=== PATIENT | female | born 1990 | race Two or more races ===

== ENCOUNTER 2024-09-14 23:24 | Emergency (ER) | payer OTHER, SELFPAY ==
[2024-09-14 23:24] VITALS: BMI 43.0
[2024-09-15 00:05] VITALS: BP 154/99; PULSE 110; RESP 18; TEMP 37.1; O2SAT 96
--- NOTE | 2024-09-15 00:26 | XR_ITS ---
Examination: Abdomen sonogram, Limited Date and time of exam: September 15, 2024 0325 hrs. Indications: Epigastric pain beginning one week ago Technique: Real-time crow scale transabdominal sonographic images of the upper abdomen obtained. Findings: Gallbladder is contracted around gallstones Gallbladder wall 0.4 cm Common bile duct 0.1 cm Pancreas obscured by bowel gas Liver 14.1 cm irregular contour no focal liver lesions Normal hepatopedal portal venous flow Patent IVC Impression: Cholelithiasis Thickened gallbladder wall 0.4 cm, consider HIDA scan or MRCP follow-up
--- NOTE | 2024-09-15 00:27 | PD.EDRME ---
Rapid Medical Screening Exam RME Arrival date/time: 09/14/24 23:24 34-year-old female past medical history of gallstones presents emergency department complaining of epigastric pain that radiates to her upper back. Chief Complaint: Abdominal Pain Time Seen by Provider: 09/15/24 00:09 Vital signs: Vital Signs Temperature 98.8 F 09/15/24 00:05 Pulse Rate 110 H 09/15/24 00:05 Respiratory Rate 18 09/15/24 00:05 Blood Pressure 154/99 H 09/15/24 00:05 Pulse Oximetry (%) 96 09/15/24 00:05 Oxygen Delivery Method Room Air 09/15/24 00:05 Vital signs reviewed by provider: Yes
[2024-09-15] MEDS: ACETAMINOPHEN 500 MG TABLET 1000 MG PO (00:36)
[2024-09-15 00:42] VITALS: BP 156/92; PULSE 100; RESP 17; O2SAT 100
[2024-09-15 01:01] LABS: Basophils % (Auto) 0 % (0-2.5); Eosinophils # (Auto) 0.3 Thou/mm3 (0.0-0.5); Eosinophils % (Auto) 2 % (0-10); Hemoglobin 13.7 g/dL (12.0-16.0); Immature Granulocytes % (Auto) 1 % (0-0); Immature Granulocytes Auto 0.05 Thou/mm3 (0.00-0.00); Lymphocytes % (Auto) 28 % (10-50); Mean Corpuscular HGB Conc 31.9 g/dl (31.0-37.0); Mean Corpuscular Volume 79 fL (80-100); Monocytes # (Auto) 0.5 Thou/mm3 (0.0-0.8); Monocytes % (Auto) 5 % (0-12); Neutrophils # (Auto) 6.7 Thou/mm3 (1.8-7.7); Neutrophils % (Auto) 64 % (37-80); Nucleated Red Blood Cell % 0 /100 WBC (0); Platelet Count 309 Thou/mm3 (140-440); Red Blood Count 5.47 Miln/mm3 (4.00-5.20); White Blood Count 10.5 Thou/mm3 (3.6-11.0)
--- NOTE | 2024-09-15 01:19 | EDNOTE_ITS ---
ED Abdominal Pain RME/HPI General Chief Complaint: Abdominal Pain Stated complaint: RUQ PAIN RADIATES TO BACK NAUSEA Time seen by provider: 09/15/24 00:09 Arrival date/time: 09/14/24 23:24 RME / HPI RME / HPI narrative: DR. COLEMAN MAIN ED EVALUATION: 34 year old female with past medical history significant for hypertension and diabetes presents to the Emergency Department with complaint of epigastric pain that radiates to the upper back area. Pain is described as aching and rated mild to moderate in severity. Related Data Home Medications ?Medication ?Instructions ?Recorded ?Confirmed amlodipine 5 mg tablet 5 mg PO QDAY 10/28/23 10/28/23 dapagliflozin propanediol 10 mg 10 mg PO QDAY 10/28/23 10/28/23 tablet (Farxiga) semaglutide 2 mg/dose (8 mg/3 mL) 2 mg subcut QWEEK 10/28/23 10/28/23 subcutaneous pen injector (Ozempic) Allergies Allergy/AdvReac Type Severity Reaction Status Date / Time No Known Allergies Allergy Verified 10/28/23 16:08 Review of Systems Review of Systems Systems Reviewed: All systems reviewed, normal except as documented Narrative Review of Systems: GEN: No fever, no chills, no weight loss EYES: No discharge, no visual changes, no pain HEENT: No ear pain, no congestion, no sore throat PULM: No shortness of breath, no cough, no congestion CV: No chest pain, no dyspnea on exertion, no palpitations GI: No nausea, no vomiting, no diarrhea, + epigastric pain, no constipation : No frequency, no urgency and no dysuria MUSC/SKEL: No joint pain, + back pain SKIN: No rash PSYCH: No hallucinations, no depression HEME/LYMPH: No easy bleeding or bruising tendencies NEURO: No weakness, no headache Past Medical History Past Medical History CARDIAC: Positive Cardiac Disorders and Hypertension ENDOCRINE: Positive Diabetes Mellitus Type 2 Social History SMOKING STATUS: Never smoker SUBSTANCE USE: does not use ALCOHOL: Never ED Exam Narrative Physical exam: GENERAL APPEARANCE: alert and oriented x 4, well-developed, well-nourished, no acute distress VITALS: All vitals were reviewed and the pulse ox is 100% on room air, which is normal according to my interpretation. HEENT: Normocephalic, atraumatic; pupils equal, round, reactive to light; EOMI; mucous membranes pink, moist; oropharynx clear NECK: Supple LUNGS: CTABL; no wheezes, no rales, no rhonchi HEART: Regular rate, regular rhythm; normal S1, S2; no murmurs ABDOMEN: non distended; normal BS; soft, no tenderness, no guarding, no rebound; no masses, no organomegaly, no hernia BACK: no CVA tenderness EXTREMITIES: atraumatic; no edema NEUROLOGIC: awake; alert and oriented x4; cranial nerves II-XII grossly intact; no focal sensory or motor deficits PSYCHIATRIC: appropriate mood and affect SKIN: warm, dry, normal color; no rashes Course Quality Measures none Orders Category Date Time Status US gall bladder Stat Exams 09/15/24 00:26 Completed US renal BI Stat Exams 09/15/24 02:09 Completed CBC Stat Lab 09/15/24 00:48 Completed CMP [Comprehensive Metabolic Panel] Stat Lab 09/15/24 00:48 Completed HCG,Qualitative Serum Stat Lab 09/15/24 00:48 Completed Lipase Stat Lab 09/15/24 00:48 Completed Urinalysis, C/S if Indicated Stat Lab 09/15/24 01:25 Completed Acetaminophen Tab [Tylenol ES Tab] Med 09/15/24 00:26 Discontinued 1,000 mg PO X1 ONE HYDROcodone*/APAP 5/325 [[place] 5/325] Med 09/15/24 02:14 Discontinued 1 tab PO X1 ONE Ketorolac Inj [Toradol Inj] Med 09/15/24 02:09 Discontinued 30 mg IM X1 ONE Ondansetron Odt [Zofran Odt] Med 09/15/24 02:14 Discontinued 4 mg PO X1 ONE Reevaluation(s) Reevaluation #1: Patient remains clinically stable throughout the emergency department visit. Re- assessment at the time of disposition demonstrates that the patient is in no acute distress. We reviewed all the results, analysis, and treatment plans. Patient is amenable to discharge. Strict return precautions were outlined. Patient was discharged in stable condition. Time: 05:30 Vital Signs Vital signs: Vital Signs Temperature 98.8 F 09/15/24 00:05 Pulse Rate 110 H 09/15/24 00:05 Respiratory Rate 18 09/15/24 00:05 Blood Pressure 154/99 H 09/15/24 00:05 Pulse Oximetry (%) 96 12/14/24 00:05 Oxygen Delivery Method Room Air 09/15/24 00:05 Abdominal Pain MDM MDM Narrative MDM Narrative:: I, Justine Leon, am scribing for and in the presence of Dr. Coleman. Patient data External records reviewed:: None (no previous visits) Clinical information provided by:: patient Social determinants that could affect healthcare access:: none Patient has the following chronic illnesses:: Hypertension and diabetes. How is presenting disease/condition affected by chronic disease/condition?: exacerbated by Evaluation data The following diagnostics were reviewed and interpreted by me:: lab results and radiology exam(s) Lab and/or radiology exams considered but not ordered:: none Interpretation Summary: Procedure(s): US renal BI Accession Number(s): [id number] cc: Kd Toro PA-C; Mariano Khan MD; Jannette Coleman MD~ Examination: Retroperitoneal ultrasound, complete Technique: Multiple high resolution grayscale images of the retroperitoneum obtained, including kidneys and bladder. Exam date and time:September 15, 2024 0332 hrs. Indications: Flank pain epigastric pain beginning one week ago Findings: Right kidney 10.2 x 4.7 x 5.3 cm cortex 1.6 cm Left kidney 9.6 x 4.7 x 5.6 cm renal cortex 2.2 cm No hydronephrosis or renal calculi Mild bilateral renal parenchymal scar formation No bladder mass or bladder calculi, bladder prevoid volume 188 cc unable to void Impression: No renal calculi or hydronephrosis Dictated By: Mariano Khan MD Procedure(s): US gall bladder Accession Number(s): [id number] cc: Kd Toro PA-C; Mariano Khan MD; Agata Beck (BATH MIXER),Isrrael MANN~ Examination: Abdomen sonogram, Limited Date and time of exam: September 15, 2024 0325 hrs. Indications: Epigastric pain beginning one week ago Technique: Real-time crow scale transabdominal sonographic images of the upper abdomen obtained. Findings: Gallbladder is contracted around gallstones Gallbladder wall 0.4 cm Common bile duct 0.1 cm Pancreas obscured by bowel gas Liver 14.1 cm irregular contour no focal liver lesions Normal hepatopedal portal venous flow Patent IVC Impression: Cholelithiasis Thickened gallbladder wall 0.4 cm, consider HIDA scan or MRCP follow-up Dictated By: Mariano Khan MD Medications / Prescriptions Medications or Prescriptions considered but not ordered:: none Medication administrations:: Medication Administration History Discontinued Medications Acetaminophen (Acetaminophen 500 Mg Tablet) 1,000 mg PO X1 ONE Stop: 09/15/24 00:27 Last Admin: 09/15/24 00:36 Dose: 1,000 mg Documented By: LILIAM Hydrocodone Bitart/Acetaminophen (Hydrocodone/Apap 5/325 Tablet) 1 tab PO X1 ONE Stop: 09/15/24 02:15 Last Admin: 09/15/24 03:16 Dose: Not Given Documented By: SE Non-Admin Reason: Patient Refused Ketorolac Tromethamine (Ketorolac Inj 30 Mg/Ml Vial) 30 mg IM X1 ONE Stop: 09/15/24 02:10 Last Admin: 09/15/24 03:11 Dose: 30 mg Documented By: SE Ondansetron HCl (Ondansetron Odt 4 Mg Tabrap) 4 mg PO X1 ONE; Protocol Stop: 09/15/24 02:15 Last Admin: 09/15/24 03:16 Dose: 4 mg Documented By: SE see above Consultations Consultation(s) initiated? (list below): No Diagnosis Differential diagnosis abdominal pain: abdominal pain, constipation, gastroenteritis and pancreatitis Most likely diagnosis given after review of the tests above:: Biliary colic Admission Indicated Admission indicated?: not indicated Admission Request Was there a request for admission?: No Disposition Plan Disposition Plan: Discharge Discharge Attestation Discharge Attestation: The patient and all family members were given an opportunity to ask questions and understood the discharge instructions. Discharge instructions specifically effects, indications for sooner follow up or return to the emergency department, and the expected course of current diagnosis. Patient condition: Stable Discharge Plan Plan Patient Disposition: HOME (Self Care) Prescriptions/Referrals Prescriptions/Med Rec: No Action amlodipine 5 mg Tablet 5 mg PO QDAY Farxiga 10 mg Tablet 10 mg PO QDAY Ozempic 2 mg/dose (8 mg/3 mL) Pen Injector 2 mg SUBCUT QWEEK Referrals: Sapna Lawrence MD [Physician] - None Temporary Provider,ED [Physician] - In 1 week Problem List Clinical Impression: Biliary colic Patient/Caregiver Discharge Instructions Education Materials: ED Gallstones with Biliary Colic Additional Instructions: Follow-up as needed with Dr. Lawrence, surgery. Call office for appointment. Print Language: Congolese Stand Alone Forms: Work/School Release
[2024-09-15 01:33] LABS: Collection Type, Urine Clean Catch
[2024-09-15 02:01] LABS: Bilirubin,Urine Negative (Negative); Blood,Urine Negative (Negative); Clarity,Urine Clear (Clear/Hazy); Color,Urine Colorless (Lt Yel-Yel); Culture Indicated,Urine Not Indicated; Glucose, Urine 4+ (Negative); Ketones,Urine Negative (Negative); Leukocyte Esterase,Urine Positive (Negative); Nitrite,Urine Negative (Negative); PH,Urine 6.5 (5.0-7.0); Protein,Urine 1+ (Neg - Trace); RBC,Urine 2 /hpf (0-3); Specific Gravity,Urine 1.011 (1.001-1.035); Squamous Epithelial Cell,Urine 1 /hpf (0-5); Urobilinogen,Urine Negative mg/dL (0.0-1.0); WBC,Urine 10 /hpf (0-5)
[2024-09-15 02:06] LABS: Alanine Aminotransferase 10 U/L (10-49); Albumin, Serum 4.5 gm/dL (3.5-5.0); Albumin/Globulin Ratio 1.6 (1.2-2.2); Alkaline Phosphatase 93 U/L (46-116); Anion Gap 10 (7-16); Aspartate Amino Transferase 12 U/L (0-34); BUN/Creatinine Ratio 17 Ratio (12-20); Bilirubin,Total 0.2 mg/dL (0.3-1.2); Blood Urea Nitrogen 17 mg/dL (9-23); Calcium 10.1 mg/dL (8.3-10.6); Calcium (Corrected) 10.1 mg/dL (8.5-10.1); Carbon Dioxide 24.1 mMol/L (20.0-31.0); Chloride 104 mMol/L (98-107); Estimated Creatinine Clearance 84.1 mL/min (>60); Globulin 2.9 gm/dL (2.3-3.5); Glucose 109 mg/dL (74-106); HCG,Qualitative Serum Negative; Lipase 47 U/L (12-53); Osmolality,Calculated 278 (275-295); Sodium 138 mMol/L (136-145); Total Protein 7.4 gm/dL (5.7-8.2); eGFR > 60 See Note
--- NOTE | 2024-09-15 02:09 | XR_ITS ---
Examination: Retroperitoneal ultrasound, complete Technique: Multiple high resolution grayscale images of the retroperitoneum obtained, including kidneys and bladder. Exam date and time:September 15, 2024 0332 hrs. Indications: Flank pain epigastric pain beginning one week ago Findings: Right kidney 10.2 x 4.7 x 5.3 cm cortex 1.6 cm Left kidney 9.6 x 4.7 x 5.6 cm renal cortex 2.2 cm No hydronephrosis or renal calculi Mild bilateral renal parenchymal scar formation No bladder mass or bladder calculi, bladder prevoid volume 188 cc unable to void Impression: No renal calculi or hydronephrosis
[2024-09-15 02:25] VITALS: BP 122/69; PULSE 90; RESP 16; TEMP 37.1; O2SAT 100
[2024-09-15] MEDS: KETOROLAC INJ 30 MG/ML VIAL IM (03:11)
[2024-09-15] MEDS: ONDANSETRON ODT 4 MG TABRAP PO (03:16)
[2024-09-15 04:15] VITALS: BP 142/81; PULSE 88; RESP 17; O2SAT 98
--- NOTE | 2024-09-15 04:58 | PRELIM_ITS ---
Renal/Retroperitoneal ultrasound. September 15, 2024 0332 hours Clinical history: Right flank pain Co mparison: NoneFindings:Right: The right kidney measures 10.7 x 4.7 x 5.3 cm with right renal scar for mation. There is no hydronephrosis or renal calculus. The corticomedullary differentiation is maintai yarely.Left: The left kidney measures 9.6 x 4.7 x 5.6 cm with left renal scar formation. There is no hyd ronephrosis or renal calculus. The corticomedullary differentiation is maintained.The urinary bladder measures 8.4 x 6 x 7.2 cm. The pre void volume measures 188 mL. The patient could not void at this t randall. Impression:No evidence of hydronephrosis or renal calculus. Report Electronically Signed By: Tia Haney 09/15/2024 4:58:17 AM [EST]
--- NOTE | 2024-09-15 05:13 | PRELIM_ITS ---
Right upper quadrant abdominal ultrasound. September 15, 2024 at 0325 hoursClinical history: Epigastri c pain history of gallstones.Technique: Grayscale and color flow images of the right upper quadrant a re provided. Hepatic and portal veins were also imaged with color flow images. Comparison: No prior s tudy is available for comparison.Findings:The evaluation is limited due to overlying bowel gas The li zaire demonstrates heterogeneous, mildly nodular contour. No intrahepatic biliary ductal dilatation. Th e main portal vein is patent and demonstrates hepatopetal flow. A curvilinear echogenic line with dif fuse posterior acoustic shadowing is demonstrated in the region of the gallbladder (PUMA sign), likely representing multiple gallbladder calculi. The gallbladder wall is thickened measuring 4.1 mm. No pe richolecystic fluid is demonstrated. Sonographic Epstein sign is positive as per the technologist's no te. The common bile duct is normal in caliber at 1 mm. The pancreas is obscured by overlying gas and not visualized. Impression:Findings suggestive of acute calculous cholecystitis. Recommend clinical c orrelation. Heterogeneous nodular contour of the liver, likely representing cirrhosis. Report Electr onically Signed By: Mo Haney 09/15/2024 5:13:27 AM [EST]
[2024-09-15 05:56] VITALS: RESP 18
== END 2024-09-15 05:57 | disposition home or self-care (01) ==
PROVIDERS: Emergency Provider Emergency Medicine; PCP Physician Assistant
DX: K80.70 Calculus of gallbladder and bile duct without cholecystitis without obstruction (principal)
CPT/HCPCS: 36415; 76705; 76770; 80053; 81001; 83690; 84703; 85025; 96372; 99284; J1885; Q0162; A9270

== ENCOUNTER 2024-10-01 09:52 | Outpatient (AMB) | payer OTHER, SELFPAY ==
[2024-10-01 10:03] VITALS: BP 131/81; PULSE 110; RESP 18; TEMP 36.2; O2SAT 98; BMI 43.5
--- NOTE | 2024-10-01 10:03 | GSCOFFNT_ITS ---
Vital Signs - [facility] 10/01/24 10:03 Height 1.52 m Height Method Stated Weight 101.236 kg Weight Measurement Method Standing Scale BMI 43.5 BP 131/81 H Blood Pressure Source Automatic Cuff Blood Pressure Location Right Upper Arm Position Sitting Respiration 18 Pulse 110 H Pulse Source Monitor Temp 97.1 F Temp Source Temporal Artery Scan Pulse Oximetry (%) 98 Oxygen Delivery Method Room Air Med/Allergies Allergies & Medications Allergies No Known Allergies Allergy (Verified 10/01/24 10:04) Medication Reconciliation amlodipine 5 mg tablet 5 mg PO QDAY 10/28/23 [History Confirmed 10/01/24] dapagliflozin propanediol 10 mg tablet (Farxiga) 10 mg PO QDAY 10/28/23 [History Confirmed 10/01/24] semaglutide 2 mg/dose (8 mg/3 mL) subcutaneous pen injector (Ozempic) 2 mg subcut QWEEK 10/28/23 [History Confirmed 10/01/24] empagliflozin 25 mg tablet (Jardiance) 25 mg PO QAM 10/01/24 [History Confirmed 10/01/24] rosuvastatin 20 mg tablet (Crestor) 20 mg PO QDAY 10/01/24 [History Confirmed 10/01/24] MA Intake Visit Data Collection New Patient or Established: Established Patient (seen at [facility] within 3 years) Seen by Clinical Staff ONLY (RN/MA): No Reason for Visit:: GALLSTONES ER F/U Pain Present Currently: No Test Director Required: No PCP or OBGYN visit in last 3 months: Yes Date of Last Menstrual Period: 09/18/24 Smoking Status Smoking Status: Never smoker Immunization / Flu Flu Vaccine in the Last 12 Months: Yes Flu Vaccine Exclusion Criteria: Already Received Past Medical History Past Medical History CARDIAC: Positive Cardiac Disorders and Hypertension; Negative Congestive Heart Failure RESPIRATORY: Negative Chronic Obstructive Pulmonary Disease (COPD) GASTROINTESTINAL: Negative Gastrointestinal Disorders GENITOURINARY: Negative Genitourinary Disorders, Renal Disease or Kidney Stones ENDOCRINE: Positive Diabetes Mellitus Type 2; Negative Endocrine Disorders or Diabetes Mellitus Type 1 HEMATOLOGIC: Negative Blood Disorders, Anemia or Clotting Problems OTHER HISTORY: Negative Cancer Social History SMOKING STATUS: Smoking status: Never smoker ALCOHOL: Alcohol Intake: Never HOUSING: Housing: House HPI HPI Narrative 34F referred for symptomatic cholelithiasis. Pt reports she has had intermittent symptoms for years but had not had any pain for the past year until a couple weeks ago, when she ate lasagna and had severe RUQ pain radiating to the back associated with nausea and dizziness. Workup showed symptomatic cholelithiasis PMH: HTN, HLD, DMII (last A1c <6) PSHx: None Meds: Amlodipine, farxiga, jardiance, crestor Allergies: NKDA Social hx: Nonsmoker, works as RN ROS Review of Systems Systems Reviewed: All systems reviewed, normal except as documented Objective/Exam General General Appearance: alert, cooperative and well groomed Resp Respiratory exam: Absent respiratory distress Abdominal Abdominal exam: Present soft; Absent distention or tenderness Results Gallbladder US reviewed Assessment & Plan Diagnosis / Problem List (1) Biliary colic: Status: Inactive Assessment & Plan: 34F with HTN, HLD, DMII presenting with symptomatic cholelithiasis. I explained benefits/risks of surgery including need for conversion to open, bleeding, infection, diarrhea, and injury to nearby structures requiring further procedures or surgery, which would require transfer to another hospital. Pt expressed understanding and would like to proceed in November Office Procedures GNS Level of Care Nursing/Assessment Patient Status: Established Patient Nursing Assessment/Reassesment: Medication Reconciliation, Update PMH in EMR and Vital Signs Coordination of Care: Complex Care and Chronic Disease 1-5, Education Complex Pt/Fam, 1 Ins Authorization and Staff clarify orders Established Patient Charge Established Patient Point Assignment: 100 Established Patient Point Charge: EP Level 3 (80-115) Patient Portal Questionaires Social History Living Situation History Housing: House Tobacco History Smoking Status: Never smoker Alcohol History Alcohol Intake: Never Review of Systems Report any current symptoms Only answer those that you have currently: Past Medical History Past Medical History Have you ever been diagnosed with any of the following: Cardiology Problems Congestive Heart Failure: No Hypertension: Yes Respiratory Problems Chronic Obstructive Pulmonary Disease (COPD): No Genital/Urinary Problems Renal Disease: No Kidney Stones: No Endocrine Problems Diabetes Mellitus Type 1: No Diabetes Mellitus Type 2: Yes Blood Problems Anemia: No Clotting Problems: No Other Problems Cancer: No
== END 2024-10-01 10:15 | disposition home or self-care (01) ==
LOC: HODSRG 09:52
PROVIDERS: PCP Physician Assistant; Referring Provider Physician Assistant; Supervising Provider Surgery; Visit Provider Surgery
DX: K80.50 Calculus of bile duct without cholangitis or cholecystitis without obstruction (principal)
CPT/HCPCS: 99213; G0463

== ENCOUNTER 2024-11-01 13:49 | Outpatient (AMB) | payer OTHER, SELFPAY ==
[2024-11-01 13:57] VITALS: BP 120/81; PULSE 107; RESP 18; TEMP 36.6; O2SAT 98; BMI 43.4
--- NOTE | 2024-11-01 13:57 | GSCOFFNT_ITS ---
Vital Signs - [facility] 11/01/24 13:57 Height 1.52 m Height Method Stated Weight 100.442 kg Weight Measurement Method Standing Scale BMI 43.4 BP 120/81 Blood Pressure Source Automatic Cuff Blood Pressure Location Left Upper Arm Position Sitting Respiration 18 Pulse 107 H Pulse Source Monitor Temp 97.9 F Temp Source Temporal Artery Scan Pulse Oximetry (%) 98 Oxygen Delivery Method Room Air Med/Allergies Allergies & Medications Allergies No Known Allergies Allergy (Verified 11/01/24 13:58) Medication Reconciliation amlodipine 5 mg tablet 5 mg PO QDAY 10/28/23 [History Confirmed 11/01/24] dapagliflozin propanediol 10 mg tablet (Farxiga) 10 mg PO QDAY 10/28/23 [History Confirmed 11/01/24] semaglutide 2 mg/dose (8 mg/3 mL) subcutaneous pen injector (Ozempic) 2 mg subcut QWEEK 10/28/23 [History Confirmed 11/01/24] empagliflozin 25 mg tablet (Jardiance) 25 mg PO QAM 10/01/24 [History Confirmed 11/01/24] rosuvastatin 20 mg tablet (Crestor) 20 mg PO QDAY 10/01/24 [History Confirmed 11/01/24] MA Intake Visit Data Collection New Patient or Established: Established Patient (seen at [facility] within 3 years) Seen by Clinical Staff ONLY (RN/MA): No Reason for Visit:: follow up Pain Present Currently: No Purification Operator Required: No PCP or OBGYN visit in last 3 months: Yes Hx Now: No Do You Feel Safe at Home: Yes Authorities Contacted: N/A Smoking Status Smoking Status: Never smoker Immunization / Flu Flu Vaccine in the Last 12 Months: No Flu Vaccine Exclusion Criteria: No Exclusion Criteria Past Medical History Past Medical History CARDIAC: Positive Cardiac Disorders and Hypertension; Negative Congestive Heart Failure RESPIRATORY: Negative Chronic Obstructive Pulmonary Disease (COPD) GASTROINTESTINAL: Negative Gastrointestinal Disorders GENITOURINARY: Negative Genitourinary Disorders, Renal Disease or Kidney Stones ENDOCRINE: Positive Diabetes Mellitus Type 2; Negative Endocrine Disorders or Diabetes Mellitus Type 1 HEMATOLOGIC: Negative Blood Disorders, Anemia or Clotting Problems OTHER HISTORY: Negative Cancer Social History SMOKING STATUS: Smoking status: Never smoker ALCOHOL: Alcohol Intake: Never HOUSING: Housing: House HPI HPI Narrative 34F with HTN, HLD, DMII here for follow up of cholelithiasis. Pt reports she has had some mild pain this past week but it has self-resolved ROS Review of Systems Systems Reviewed: All systems reviewed, normal except as documented Objective/Exam General General Appearance: alert, cooperative and well groomed Resp Respiratory exam: Absent respiratory distress Assessment & Plan Diagnosis / Problem List (1) Symptomatic cholelithiasis: Status: Acute Assessment & Plan: 34F with HTN, HLD, DMII presenting with symptomatic cholelithiasis. Pt understands benefits/risks of surgery and agrees to proceed Office Procedures GNS Level of Care Nursing/Assessment Patient Status: Established Patient Nursing Assessment/Reassesment: Medication Reconciliation, Update PMH in EMR and Vital Signs Coordination of Care: Complex Care and Chronic Disease 1-5, Consent,records obtained, informed consent, Education Simp Pt/Fam, Results/Orders obtained and Staff clarify orders Established Patient Charge Established Patient Point Assignment: 90 Established Patient Point Charge: EP Level 3 (80-115) Patient Portal Questionaires Social History Living Situation History Housing: House Tobacco History Smoking Status: Never smoker Alcohol History Alcohol Intake: Never Domestic Abuse History Do You Feel Safe at Home: Yes Review of Systems Report any current symptoms Only answer those that you have currently: Past Medical History Past Medical History Have you ever been diagnosed with any of the following: Cardiology Problems Congestive Heart Failure: No Hypertension: Yes Respiratory Problems Chronic Obstructive Pulmonary Disease (COPD): No Genital/Urinary Problems Renal Disease: No Kidney Stones: No Endocrine Problems Diabetes Mellitus Type 1: No Diabetes Mellitus Type 2: Yes Blood Problems Anemia: No Clotting Problems: No Other Problems Cancer: No
== END 2024-11-01 14:05 | disposition home or self-care (01) ==
LOC: HODSRG 13:49
PROVIDERS: PCP Physician Assistant; Referring Provider Physician Assistant; Supervising Provider Surgery; Visit Provider Surgery
DX: K80.20 Calculus of gallbladder without cholecystitis without obstruction (principal)
CPT/HCPCS: 99213; G0463

== ENCOUNTER 2024-11-07 05:40 | Day surgery (SDC) | payer OTHER, SELFPAY ==
--- NOTE | 2024-11-06 06:40 | EKG_ITS ---
[facility] Test Date: 2024-11-06 Pat Name: HERNAN ZARATE Department: Room: - Gender: Female Landscape Crew Leader: MILKA : 1990 Requested By: Mo De Dios Order Number: [id number] Reading MD: Mo De Dios Measurements Intervals [place] Rate: 90 P: 6 WI: 140 QRS: -20 QRSD: 82 T: 17 QT: 340 QTc: 417 Interpretive Statements SINUS RHYTHM No previous ECG available for comparison /store/S0/[id number]/ecg/[id number].pdf
[2024-11-06 08:15] VITALS: BMI 43.4
[2024-11-06 08:54] LABS: Basophils % (Auto) 0 % (0-2.5); Neutrophils % (Auto) 65 % (37-80); Nucleated Red Blood Cell % 0 /100 WBC (0)
[2024-11-06 09:01] LABS: Eosinophils # (Auto) 0.2 Thou/mm3 (0.0-0.5); Eosinophils % (Auto) 2 % (0-10); Hematocrit 45.5 % (36.0-46.0); Hemoglobin 14.7 g/dL (12.0-16.0); Immature Granulocytes % (Auto) 1 % (0-0); Immature Granulocytes Auto 0.05 Thou/mm3 (0.00-0.00); Lymphocytes # (Auto) 2.8 Thou/mm3 (1.0-4.8); Lymphocytes % (Auto) 29 % (10-50); Mean Corpuscular HGB Conc 32.3 g/dl (31.0-37.0); Mean Corpuscular Hemoglobin 25.2 pg (25.0-35.0); Mean Corpuscular Volume 78 fL (80-100); Monocytes # (Auto) 0.3 Thou/mm3 (0.0-0.8); Monocytes % (Auto) 4 % (0-12); Neutrophils # (Auto) 6.1 Thou/mm3 (1.8-7.7); Platelet Count 355 Thou/mm3 (140-440); RDW Standard Deviation 38.2 fL (36.4-46.3); Red Blood Count 5.84 Miln/mm3 (4.00-5.20); White Blood Count 9.5 Thou/mm3 (3.6-11.0)
[2024-11-06 09:05] LABS: HCG,Qualitative Serum Negative
[2024-11-06 09:07] LABS: Partial Thromboplastin Time 32.8 Seconds (22.0-36.0); Prothrombin Time 10.9 Seconds (9.0-12.2)
[2024-11-06 09:18] LABS: Alanine Aminotransferase 14 U/L (10-49); Albumin, Serum 4.7 gm/dL (3.5-5.0); Albumin/Globulin Ratio 1.5 (1.2-2.2); Alkaline Phosphatase 96 U/L (46-116); Anion Gap 9 (7-16); BUN/Creatinine Ratio 27 Ratio (12-20); Bilirubin,Total 0.5 mg/dL (0.3-1.2); Blood Urea Nitrogen 27 mg/dL (9-23); Calcium 9.6 mg/dL (8.3-10.6); Calcium (Corrected) 9.6 mg/dL (8.5-10.1); Carbon Dioxide 23.7 mMol/L (20.0-31.0); Chloride 103 mMol/L (98-107); Estimated Creatinine Clearance 84.6 mL/min (>60); Globulin 3.2 gm/dL (2.3-3.5); Glucose 105 mg/dL (74-106); Osmolality,Calculated 277 (275-295); Potassium 4.3 mMol/L (3.4-5.1); Sodium 136 mMol/L (136-145); Total Protein 7.9 gm/dL (5.7-8.2); eGFR > 60 See Note
[2024-11-06 09:25] LABS: Aspartate Amino Transferase < 10 U/L (0-34)
[2024-11-07] VITALS (10 sets, daily range): BP systolic 103–135; BP diastolic 58–85; PULSE 88–106; RESP 16–23; TEMP 36.2–37; O2SAT 94–100; BMI 43.8
[2024-11-07] MEDS: RINGERS LACTATED 1000 ML 1,000 ML 20 ML IV (06:27)
--- NOTE | 2024-11-07 07:24 | CHAP ---
Gave patient comfort and prayer before her procedure
--- NOTE | 2024-11-07 09:01 | ESOP_ITS ---
Date of Procedure 11/07/24 Pre Op Diagnosis Symptomatic cholelithiasis Post Op Diagnosis Same Procedure Laparoscopic cholecystectomy Findings Gallbladder with large stones Procedure Description After discussion of risks and benefits, patient was brought to the operating room, SCDs were placed and general anesthesia was induced. She was prepped and draped in the usual sterile fashion and received preoperative antibiotics. After timeout a supraumbilical incision was made and the tissues were elevated with towel clamps. A Veress needle was placed through the incision and proper positioning was confirmed with the drop test. At that point the abdomen was insufflated to 15 mmHg and the Veress needle was then exchanged for a 5 mm camer a using a Visiport technique. There were no signs of injury from the point of entry. 3 additional ports were placed under direct vision, one 12 mm at the epigastrium, one 5 mm right subcostal and 5 mm right anterior axillary line. Patient was placed in reverse Trendelenburg. The fundus of the gallbladder was grasped and retracted cephalad and the infundibulum was grasped and retracted laterally. The critical view of safety was achieved and the cystic duct and cystic artery were clipped and transected in the usual fashion. The gallbladder was removed from the gallbladder bed using electrocautery. Hemostasis of the gallbladder bed was achieved with electrocautery. The specimen was removed in an Endo Catch bag via the epigastric port and the epigastric fascia was closed with a 0 Vicryl suture using a Thien-Courtney. Incisions were irrigated and infiltrated with half percent Marcaine for a total of 20 cc. Incisions were closed with 4 Monocryl and reinforced with Dermabond. Patient was extubated and brought to PACU in stable condition Pathology / specimen Other (Gallbladder) Estimated Blood Loss 25 Surgeon Sapna Lawrence MD Surgical Staff Operation Date: 11/07/24 07:30 Case Staff Anesthesiologist: Joaquín Crawford RN First Assistant: Cuate Mendiola
--- NOTE | 2024-11-07 09:03 | PD.SURDS ---
Planned Discharge Date 11/07/24 DS: Providers Provider Primary care physician: Kd Toro PA-C Attending Provider on Admission: Sapna Lawrence MD Attending Provider on DC: Sapna Lawrence MD Discharging Provider: Sapna Lawrence MD Diagnosis Discharge Diagnosis (1) Symptomatic cholelithiasis: Status: Acute Problem List Completed Was Problem List Reviewed/Reconciled?: Yes Exam Vital Signs Temp Pulse Resp BP Pulse Ox 98.6 F 97 16 130/84 99 11/07/24 06:28 11/07/24 06:28 11/07/24 06:28 11/07/24 06:28 11/07/24 06:28 Constitutional Constitutional: no acute distress Routine Respiratory Exam Respiratory: Present no resp distress Routine Abdominal Exam Abdominal: Present soft; Absent tenderness or distended Discharge Plan Plan Patient Disposition: HOME (Self Care) Prescriptions/Referrals Prescriptions/Med Rec: New oxycodone-acetaminophen [Percocet] 5-325 mg tablet 1 tab PO Q6H MDD 6 tabs PRN (Reason: pain) Qty: 10 0RF No Action Jardiance 25 mg tablet 10 mg PO QAM rosuvastatin [Crestor] 20 mg tablet 20 mg PO QDAY Ozempic 2 mg/dose (8 mg/3 mL) Pen Injector 1 mg SUBCUT QWEEK losartan 25 mg tablet 25 mg PO DAILY Patient Comments: take 1 tablet by mouth once daily Referrals: Kd Toro PA-C [Primary Care Provider] - Sapna Lawrence MD [Physician] - (You will receive a phone call to confirm a follow-up appointment with me in 3 weeks) Patient/Caregiver Discharge Instructions Other Discharge Activity Instructions:: Avoid lifting objects greater than 10 pounds for 6 weeks You may resume showering in 2 days, on 11/09 Avoid bathing or swimming for 2 weeks Your stitches have skin glue on them which will fall off on its own and does not need to be replaced. Your stitches will not need to be removed If you develop worsening pain, nausea/vomiting, fever or jaundice please seek care in ER Education Materials: After Gallbladder Surgery, Preventing Surgical Site Infections Print Language: Slovenian Stand Alone Forms: [employer] Info., Patient Portal Info Letter Discharge Order Discharge Orders: Discharge (Routine); Ordered 11/07/24 Ordered By: Sapna Lawrence Results Results: Laboratory Laboratory results: results reviewed Results: Imaging US - abdomen: report reviewed Procedures Procedure Date 11/07/24 Procedures Laparoscopic cholecystectomy
--- NOTE | 2024-11-07 09:05 | SUR.PHASEI ---
pt received from OR in recovery bay 2. pt asleep but responds to voice, breathing unlabored on oxymask 6l. v/s stable. pt dressing to abd dermabond x4 cdi. report received from Jurgen Ureña and Dr. Crawford.
[2024-11-07] MEDS: fentaNYL CIT INJ 50 mCg/ML AMP 2ML 25 MCG IV ×4 (09:14→10:21)
[2024-11-07] MEDS: ONDANSETRON INJ 2 MG/ML INJ 2 ML 4 MG IV (10:02)
--- NOTE | 2024-11-07 10:45 | SUR.PHASEII ---
pt able to tolerate oral fluids without difficulty swallowing or nausea/vomiting.
--- NOTE | 2024-11-07 10:57 | SUR.PHASEII ---
pt awake and alert, breathing unlabored on room air. v/s stable. pt dressing to abd dermabond x4 cdi. pt able to ambulate to wheelchair with steady gait. d/c instructions given with father Fer in room using clinical science liaison [id number], all questions answered. pt d/c via wheelchair with all belongings.
== END 2024-11-07 10:57 | disposition home or self-care (01) ==
PROVIDERS: Anesthesiology; PCP Physician Assistant; Referring Provider Surgery; Visit Provider Surgery
PROC: 0FT44ZZ Resection of Gallbladder, Percutaneous Endoscopic Approach (ICD-10-PCS; CPT 47562; principal; 2024-11-07 07:30)
DX: K80.10 Calculus of gallbladder with chronic cholecystitis without obstruction (principal); Z01.810 Encounter for preprocedural cardiovascular examination; I10 Essential (primary) hypertension; E78.5 Hyperlipidemia, unspecified; E11.9 Type 2 diabetes mellitus without complications
CPT/HCPCS: 47562; 36415; 80053; 84703; 85025; 85610; 85730; 93005; A4217; A4649; J0694; J2250; J2371; J2405; J2704; J3010; J3490; J7120; A9270

== ENCOUNTER 2024-11-26 13:33 | Outpatient (AMB) | payer OTHER, SELFPAY ==
[2024-11-26 13:50] VITALS: BP 118/81; PULSE 80; RESP 19; TEMP 36.6; O2SAT 98; BMI 43.6
--- NOTE | 2024-11-26 13:50 | GSCOFFNT_ITS ---
Vital Signs - [facility] 11/26/24 13:50 Height 1.52 m Height Method Stated Weight 100.726 kg Weight Measurement Method Standing Scale BMI 43.6 BP 118/81 Blood Pressure Source Automatic Cuff Blood Pressure Location Left Upper Arm Position Sitting Respiration 19 Pulse 80 Pulse Source Monitor Temp 97.8 F Temp Source Temporal Artery Scan Pulse Oximetry (%) 98 Oxygen Delivery Method Room Air Med/Allergies Allergies & Medications Allergies No Known Allergies Allergy (Verified 11/26/24 13:50) Medication Reconciliation semaglutide 2 mg/dose (8 mg/3 mL) subcutaneous pen injector (Ozempic) 1 mg subcut QWEEK 10/28/23 [History Confirmed 11/26/24] empagliflozin 25 mg tablet (Jardiance) 10 mg PO QAM 10/01/24 [History Confirmed 11/26/24] rosuvastatin 20 mg tablet (Crestor) 20 mg PO QDAY 10/01/24 [History Confirmed 11/26/24] losartan 25 mg tablet 25 mg PO DAILY 11/06/24 [History Confirmed 11/26/24] oxycodone-acetaminophen 5 mg-325 mg tablet (Percocet) 1 tab PO Q6H PRN pain #10 tabs 11/07/24 [Rx Confirmed 11/26/24] amoxicillin 875 mg-potassium clavulanate 125 mg tablet 1 tab PO BID #10 tabs 11/13/24 [Rx Confirmed 11/26/24] MA Intake Visit Data Collection New Patient or Established: Established Patient (seen at [facility] within 3 years) Seen by Clinical Staff ONLY (RN/MA): No Reason for Visit:: FOLLOW UP LAB YEIMI Pain Present Currently: No [employer] Required: No PCP or OBGYN visit in last 3 months: Yes Hx Now: No Do You Feel Safe at Home: Yes Authorities Contacted: N/A Smoking Status Smoking Status: Never smoker Immunization / Flu Flu Vaccine in the Last 12 Months: No Flu Vaccine Exclusion Criteria: No Exclusion Criteria Past Medical History Past Medical History NEUROLOGIC: Negative Neurological Disorders or Seizures CARDIAC: Positive Cardiac Disorders and Hypertension; Negative Congestive Heart Failure RESPIRATORY: Negative Chronic Obstructive Pulmonary Disease (COPD) GASTROINTESTINAL: Positive Gall Bladder Disease and Obesity; Negative Gastrointestinal Disorders or Hepatitis GENITOURINARY: Negative Genitourinary Disorders, Renal Disease or Kidney Stones REPRODUCTIVE: Negative Previous Pregnancies ENDOCRINE: Positive Diabetes Mellitus Type 2; Negative Endocrine Disorders or Diabetes Mellitus Type 1 HEMATOLOGIC: Negative Blood Disorders, Anemia or Clotting Problems OTHER HISTORY: Negative Hospitalization, Autoimmune Disease, Blood Transfusions, Blood Transfusion Reaction, Anesthesia Reactions, Clostridium Difficile or Cancer Family History FAMILY HISTORY: Positive Family Cardiac Disorders and Family Surgery; Negative Family Psychiatric Problems, Family Respiratory Disorders, Family Gastrointestinal Problems, Family Cancer or Family Anesthesia Reaction Social History SMOKING STATUS: Smoking status: Never smoker ALCOHOL: Alcohol Intake: Never HOUSING: Housing: House HPI HPI Narrative 34F s/p lap yeimi 2/5 here for planned follow up. Pt reports mild soreness at the incision sites; she had redness of the same incisions last week I saw via photo and prescribed PO antibiotics which she has since completed. Pt reports she had some purulent drainage from the epigastric incision which has since resolved and she denies any fever. She is eating well with no nausea and no diarrhea, overall feeling well ROS Review of Systems Systems Reviewed: All systems reviewed, normal except as documented Objective/Exam General General Appearance: alert, cooperative and well groomed Resp Respiratory exam: Absent respiratory distress Abdominal Abdominal exam: Present soft and incision (c/d/i, no erythema, no fluctuance or tenderness); Absent distention or tenderness Results Pathology of gallbladder: Chronic cholecystitis with cholelithiasis Assessment & Plan Diagnosis / Problem List (1) Chronic cholecystitis: Status: Acute Assessment & Plan: 34F s/p lap yeimi 2/5 complicated by superficial skin infection now improved, overall recovering well Plan: Follow up as needed Office Procedures GNS Level of Care Nursing/Assessment Patient Status: Established Patient Nursing Assessment/Reassesment: Medication Reconciliation, Update PMH in EMR and Vital Signs Coordination of Care: Complex Care and Chronic Disease 1-5, Consent,records obtained, informed consent, Education Simp Pt/Fam, Results/Orders obtained and S taff clarify orders Established Patient Charge Established Patient Point Assignment: 90 Established Patient Point Charge: EP Level 3 (80-115) Patient Portal Questionaires Social History Living Situation History Housing: House Tobacco History Smoking Status: Never smoker Alcohol History Alcohol Intake: Never Domestic Abuse History Do You Feel Safe at Home: Yes Review of Systems Report any current symptoms Only answer those that you have currently: Past Medical History Past Medical History Have you ever been diagnosed with any of the following: Neurological Problems Seizures: No Cardiology Problems Congestive Heart Failure: No Hypertension: Yes Respiratory Problems Chronic Obstructive Pulmonary Disease (COPD): No Stomache/Intestinal Problems Hepatitis: No Gall Bladder Disease: Yes Obesity: Yes Genital/Urinary Problems Renal Disease: No Kidney Stones: No Reproductive Problems Previous Pregnancies: No Endocrine Problems Diabetes Mellitus Type 1: No Diabetes Mellitus Type 2: Yes Blood Problems Anemia: No Clotting Problems: No Other Problems Hospitalization: No Autoimmune Disease: No Blood Transfusions: No Blood Transfusion Reaction: No Anesthesia Reactions: No Clostridium Difficile: No Cancer: No
== END 2024-11-26 14:01 | disposition home or self-care (01) ==
LOC: HODSRG 13:33
PROVIDERS: PCP Physician Assistant; Referring Provider Physician Assistant; Supervising Provider Surgery; Visit Provider Surgery
DX: T81.40XD Infection following a procedure, unspecified, subsequent encounter (principal); Y84.9 Medical procedure, unspecified as the cause of abnormal reaction of the patient, or of later complication, without mention of misadventure at the time of the procedure
CPT/HCPCS: 99213; G0463

== ENCOUNTER 2025-09-14 07:27 | Emergency (ER) | payer OTHER, SELFPAY ==
[2025-09-14 07:27] VITALS: BMI 43.9
[2025-09-14 07:43] VITALS: BP 144/90; PULSE 90; RESP 18; TEMP 36.6; O2SAT 98
--- NOTE | 2025-09-14 07:46 | EDNOTE_ITS ---
<Statement entered by Jannette Coleman MD - 09/15/25 13:36> As co-signing physician, I was present and available for consult prn. I concur with the plan and care as documented by the midlevel provider. ED Abdominal Pain RME/HPI General Chief Complaint: Abdominal Pain Stated complaint: RUQ ABD PAIN X5 DAYS Time seen by provider: 09/14/25 07:29 Arrival date/time: 09/14/25 07:27 RME / HPI RME / HPI narrative: 35-year-old female with past medical history of diabetes, cholecystectomy with Dr. Rivera in November of this year, proteinuria who follows with a paddle dyeing machine operator and had a UA 3 days which was a part of her routine annual labs prior to her visit and it was noted to be cloudy, she has not had her follow-up in person visit yet, she is complaining of right upper quadrant pain similar to when she had gallstones in the past which started 5 days ago along with nausea. Denies any diarrhea, dysuria, fever, cough, chest pain, shortness of breath. Related Data Home Medications ?Medication ?Instructions ?Recorded ?Confirmed semaglutide 2 mg/dose (8 mg/3 mL) 1 mg subcut QWEEK 11/26/24 subcutaneous pen injector (Ozempic) empagliflozin 25 mg tablet 10 mg PO QAM 10/01/2411/26 (Jardiance) rosuvastatin 20 mg tablet (Crestor) 20 mg PO QDAY 09/0411/26/24 losartan 25 mg tablet 25 mg PO DAILY 11/06/2411/04 Previous Rx's ?Medication ?Instructions ?Recorded oxycodone-acetaminophen 5 mg-325 1 tab PO Q6H PRN pain #10 tabs 11/07/24 mg tablet (Percocet) amoxicillin 875 mg-potassium 1 tab PO BID #10 tabs 08/27 clavulanate 125 mg tablet Allergies Allergy/AdvReac Type Severity Reaction Status Date / Time No Known Allergies Allergy Verified 09/14/25 07:30 ED Exam Narrative Physical exam: Constitutional: Patient alert and oriented. Well appearing. No acute distress. Not toxic appearing. Head: Normocephalic, atraumatic. Eyes: Periorbital regions bilaterally normal to inspection. Conjunctiva clear bilaterally. Sclera anicteric bilaterally. Pupils equal, round, reactive to light bilaterally. Extraocular movements intact bilaterally. Mouth/Throat: Mucous membranes moist. No stridor or muffled voice. No trismus. Handling secretions without difficulty. Airway widely patent. Neck: Supple. Trachea midline. No JVD. No nuchal rigidity. Normal range of motion. Respiratory: Normal effort. No accessory muscle use or respiratory distress. Lungs clear to auscultation bilaterally without rhonchi, wheezes, or crackles. Cardiovascular: RRR. Normal S1/S2. No murmurs or rubs. Radial pulses intact bilaterally. Abdomen: Positive mild right upper quadrant tenderness to palpation. Soft. Non-distended.No pulsatile mass. No guarding or rebound. Negative Epstein?s sign. Negative McBurney?s point tenderness. Negative Rovsing?s. Back: No midline tenderness or step-offs. No CVA tenderness to palpation bilaterally. Upper Extremities: No gross deformities. Lower Extremities: No gross deformities. No edema or calf tenderness. Neuro: Speech normal. No gross motor or sensory deficits to upper or lower extremities bilaterally. GCS 15. CN II?XII grossly intact. Skin: Warm, dry, normal color. Psych: Normal affect. Cooperative. Normal insight. Course Quality Measures none Orders Category Date Time Status NPO NOW Care 09/14/25 07:56 Completed Diet NPO (NOW) Diet 09/14/25 07:[address] abdomen pelvis wo con Stat Exams 09/14/25 07:56 Completed US abdomen limited Stat Exams 09/14/25 07:56 Completed CBC Stat Lab 09/14/25 08:32 Completed CMP [Comprehensive Metabolic Panel] Stat Lab 09/14/25 08:32 Completed HCG,Qualitative Serum Stat Lab 09/14/25 08:32 Completed Lipase Stat Lab 09/14/25 08:32 Completed Urinalysis Stat Lab 09/14/25 08:48 Completed Urine Culture Stat Lab 09/14/25 08:48 Received Ketorolac Inj [Toradol Inj] Med 09/14/25 07:56 Discontinued 30 mg IM X1 ONE Ondansetron Odt [Zofran Odt] Med 09/14/25 07:56 Discontinued 4 mg PO X1 ONE Vital Signs Vital signs: Vital Signs Temperature 97.9 F 09/14/25 07:43 Pulse Rate 90 09/14/25 07:43 Respiratory Rate 18 09/14/25 07:43 Blood Pressure 144/90 H 09/14/25 07:43 Pulse Oximetry (%) 98 09/14/25 07:43 Oxygen Delivery Method Room Air 09/14/25 07:43 Abdominal Pain MDM MDM Narrative MDM Narrative:: MDM: The patient presents with abdominal pain without definite explanation found on evaluation today. However, there are no signs of peritonitis or other life-t hreatening or serious etiology. I considered admission; however, given negative work up and imaging, admission is not indicated. Serial abdominal exams were benign throughout the ED stay, and the patient tolerated oral intake without difficulty. The inherent uncertainty with undifferentiated abdominal pain was emphasized, and strict return precautions were provided. The patient has been instructed that this presentation could represent an early acute abdominal process. The plan is for mandatory re-evaluation within 24 hours and immediate return for worsening, persistence, or change in symptoms. The patient may follow up with their primary care provider or return to the ED as appropriate. The patient appears stable for discharge at this time. Patient data External records reviewed:: [facility] previous records Clinical information provided by:: patient Social determinants that could affect healthcare access:: none Patient has the following chronic illnesses:: As noted How is presenting disease/condition affected by chronic disease/condition?: exacerbated by Evaluation data The following diagnostics were reviewed and interpreted by me:: lab results and radiology exam(s) Lab and/or radiology exams considered but not ordered:: Additional Labs and radiology considered, but not ordered as they were not clinically indicated at this time. Interpretation Summary: CBC without severe leukocytosis, anemia, or thrombocytopenia CMP without severe hyperbilirubinemia, transaminitis, acute renal failure or severe electrolyte derangement Lipase without severe elevation UA with microscopic hematuria of 4 RBCs however there is also 2 squamous cells and 2 white blood cells without nitrites and 4+ glucose trace protein doubt infection Ultrasound with mild prominence of the pancreatic head otherwise no acute abdominal abnormality CT scan with a contracted urinary bladder however there is no acute intra- abdominal or pelvic abnormality Medications / Prescriptions Medications or Prescriptions considered but not ordered:: I ordered medications based on the patient?s clinical needs and assessment, as documented in the chart. For medications not prescribed, they were not indicated for the patient's current condition, and I determined they were unnecessary at this time to avoid potential risks or complications. Medication administrations:: Medication Administration History Discontinued Medications Ketorolac Tromethamine (Ketorolac Inj 30 Mg/Ml Vial) 30 mg IM X1 ONE Stop: 09/14/25 07:57 Last Admin: 09/14/25 08:24 Dose: 30 mg Documented By: ASHLEE Ondansetron HCl (Ondansetron Odt 4 Mg Tabrap) 4 mg PO X1 ONE; Protocol Stop: 09/14/25 07:57 Last Admin: 09/14/25 08:23 Dose: 4 mg Documented By: ASHLEE As noted Consultations Consultation(s) initiated? (list below): No Diagnosis Differential diagnosis abdominal pain: abdominal pain, acute appendicitis, constipation, diverticulitis, gastroenteritis and pancreatitis Most likely diagnosis given after review of the tests above:: Abdominal pain of unclear etiology Admission Indicated Admission indicated?: not indicated Explain why admission is indicated or not indicated:: Escalation of care including admission/observation considered but I decided to discharge because based on the overall clinical presentation, and after consideration of the patient's course in the emergency department and plan for outpatient management, I believe that neither further observation nor inpatient care is required at this time. Admission Request Was there a request for admission?: No Disposition Plan Disposition Plan: Discharge Discharge Attestation Discharge Attestation: The patient and all family members were given an opportunity to ask questions and understood the discharge instructions. Discharge instructions specifically effects, indications for sooner follow up or return to the emergency department, and the expected course of current diagnosis. Patient condition: Stable Discharge Plan Plan Patient Disposition: HOME (Self Care) Patient condition on transfer: Stable Prescriptions/Referrals Prescriptions/Med Rec: No Action Jardiance 25 mg tablet 10 mg PO QAM rosuvastatin [Crestor] 20 mg tablet 20 mg PO QDAY Ozempic 2 mg/dose (8 mg/3 mL) Pen Injector 1 mg SUBCUT QWEEK losartan 25 mg tablet 25 mg PO DAILY Patient Comments: take 1 tablet by mouth once daily oxycodone-acetaminophen [Percocet] 5-325 mg tablet 1 tab PO Q6H MDD 6 tabs PRN (Reason: pain) Qty: 10 0RF amoxicillin-pot clavulanate 875-125 mg tablet 1 tab PO BID Qty: 10 0RF Referrals: Kd Toro PA-C [Primary Care Provider] - In 1 week Problem List Clinical Impression: Abdominal pain Patient/Caregiver Discharge Instructions Education Materials: ED Abdominal Pain Unkn Cause Fem, ED Flank Pain, Uncertain Cause Additional Instructions: Follow up with your primary medical doctor within 48 hours. Return to the Emergency Room immediately for any new, worsening, continuing symptoms or any concerns at all. Return to the Emergency Room within 48 hours if you are unable to follow up with your primary medical doctor within 48 hours. Follow-up with a GI doctor within 1 week. Print Language: Ethiopian Stand Alone Forms: [employer] Award Info., Patient Portal Info Letter PA/AIR TRAFFIC INSTRUCTOR Supervising Physician PA/AIR TRAFFIC INSTRUCTOR Supervising Physician: Dr. Fleming
--- NOTE | 2025-09-14 07:56 | XR_ITS ---
Examination: Abdomen sonogram, Limited Date and time of exam: September 14, 2025, 0809 hours INDICATIONS: Right upper abdominal pain radiating to the back beginning 3 days ago. Technique: Real-time crow scale transabdominal sonographic images of the upper abdomen obtained. Findings: Absent gallbladder Normal common bile duct 0.3 cm Pancreatic tail 3.6 cm Liver 15.9 cm lobular contour no focal liver lesions Normal hepatopetal portal venous flow Patent IVC IMPRESSION: Absent gallbladder Normal common bile duct Mildly prominent pancreatic head, clinical correlation advised
--- NOTE | 2025-09-14 07:56 | XR_ITS ---
Examination: CT abdomen and pelvis without contrast. Coronal 3-D reconstructions. Sagittal 2-D reconstructions. Date and time of exam: September 14, 2025, 0938 hours INDICATIONS: Onset right-sided abdominal pain beginning 1 week ago, history cholecystectomy CTDI: vol (mGy): 15.9 DLP: (mGycm): 865 Technique: Axial images of the abdomen have been obtained, 3 mm slice thickness Intravenous contrast material has not been administered. Low dose protocols were performed. One or more of the following dose reduction techniques were used; automated exposure control, adjustment of the mA and/or KV according to patient size, use of iterative reconstruction technique. Findings: Diffuse fatty infiltration throughout the liver No focal liver or splenic lesions Absent gallbladder No pancreatic mass or peripancreatic edema No extrahepatic biliary tract dilatation No renal or ureteral calculi, no hydronephrosis Aorta normal size. No bowel obstruction Normal appendix No diverticulitis Uterus is not enlarged No adnexal mass Contracted urinary bladder with mild urinary bladder wall thickening anteriorly Mild osteopenia IMPRESSION: Absent gallbladder No extrahepatic biliary tract dilatation. Negative for pancreatitis. Normal appendix Urinary bladder wall thickening consider cystitis No bowel obstruction or diverticulitis
[2025-09-14] MEDS: ONDANSETRON ODT 4 MG TABRAP PO (08:23)
[2025-09-14] MEDS: KETOROLAC INJ 30 MG/ML VIAL IM (08:24)
[2025-09-14 08:52] LABS: Collection Type, Urine Voided
[2025-09-14 08:57] LABS: Basophils # (Auto) 0.0 Thou/mm3 (0.0-0.2); Basophils % (Auto) 0 % (0-2.5); Eosinophils # (Auto) 0.2 Thou/mm3 (0.0-0.5); Eosinophils % (Auto) 2 % (0-10); Hematocrit 44.5 % (36.0-46.0); Hemoglobin 14.4 g/dL (12.0-16.0); Immature Granulocytes Auto 0.04 Thou/mm3 (0.00-0.00); Lymphocytes # (Auto) 3.3 Thou/mm3 (1.0-4.8); Lymphocytes % (Auto) 31 % (10-50); Mean Corpuscular HGB Conc 32.4 g/dl (31.0-37.0); Mean Corpuscular Hemoglobin 25.9 pg (25.0-35.0); Mean Corpuscular Volume 80 fL (80-100); Monocytes # (Auto) 0.4 Thou/mm3 (0.0-0.8); Monocytes % (Auto) 4 % (0-12); Neutrophils # (Auto) 6.6 Thou/mm3 (1.8-7.7); Neutrophils % (Auto) 63 % (37-80); Nucleated Red Blood Cell # 0.00 Thou/mm3 (0.00-0.00); Nucleated Red Blood Cell % 0 /100 WBC (0); Platelet Count 320 Thou/mm3 (140-440); RDW Standard Deviation 38.0 fL (36.4-46.3); Red Blood Count 5.57 Miln/mm3 (4.00-5.20); White Blood Count 10.5 Thou/mm3 (3.6-11.0)
[2025-09-14 09:10] LABS: HCG,Qualitative Serum Negative
[2025-09-14 09:13] LABS: Alanine Aminotransferase 23 U/L (10-49); Albumin, Serum 4.9 gm/dL (3.5-5.0); Albumin/Globulin Ratio 1.6 (1.2-2.2); Alkaline Phosphatase 96 U/L (46-116); Anion Gap 10 (7-16); Aspartate Amino Transferase 13 U/L (0-34); BUN/Creatinine Ratio 13 Ratio (12-20); Bilirubin,Total 0.4 mg/dL (0.3-1.2); Blood Urea Nitrogen 13 mg/dL (9-23); Calcium 9.7 mg/dL (8.3-10.6); Calcium (Corrected) 9.7 mg/dL (8.5-10.1); Carbon Dioxide 24.7 mMol/L (20.0-31.0); Chloride 102 mMol/L (98-107); Creatinine (Component) 1.0 mg/dL (0.6-1.3); Estimated Creatinine Clearance 84.4 mL/min (>60); Globulin 3.1 gm/dL (2.3-3.5); Glucose 104 mg/dL (74-106); Lipase 37 U/L (12-53); Osmolality,Calculated 273 (275-295); Potassium 3.6 mMol/L (3.4-5.1); Sodium 137 mMol/L (136-145); Total Protein 8.0 gm/dL (5.7-8.2); eGFR > 60 See Note
[2025-09-14 09:16] LABS: Bacteria,Urine Rare; Bilirubin,Urine Negative (Negative); Blood,Urine Trace (Negative); Clarity,Urine Clear (Clear/Hazy); Color,Urine Colorless (Lt Yel-Yel); Glucose, Urine 4+ (Negative); Ketones,Urine Negative (Negative); Leukocyte Esterase,Urine Negative (Negative); Nitrite,Urine Negative (Negative); PH,Urine 6.0 (5.0-7.0); Protein,Urine Trace (Neg - Trace); RBC,Urine 4 /hpf (0-3); Specific Gravity,Urine 1.005 (1.001-1.035); Squamous Epithelial Cell,Urine 2 /hpf (0-5); Urobilinogen,Urine Negative mg/dL (0.0-1.0); WBC,Urine 2 /hpf (0-5)
== END 2025-09-14 12:54 | disposition home or self-care (01) ==
PROVIDERS: Physician Assistant; Emergency Provider Emergency Medicine; PCP Physician Assistant
DX: N32.89 Other specified disorders of bladder (principal); K86.89 Other specified diseases of pancreas; R31.29 Other microscopic hematuria
CPT/HCPCS: 36415; 74176; 76705; 80053; 81001; 83690; 84703; 85025; 87086; 96372; 99283; J1885; Q0162